=== PATIENT | female | born 1975 | race Caucasian/White ===

== ENCOUNTER → 2021-11-14 02:50 | Outpatient (CLI) | payer OTHER, SELFPAY ==
[2021-11-14 21:06] LABS: SARS-CoV-2 RNA PCR Negative
== END ==
PROVIDERS: PCP Family Medicine; Visit Provider Nurse Practitioner Family
DX: R68.89 Other general symptoms and signs (principal); Z20.822 Contact with and (suspected) exposure to COVID-19
CPT/HCPCS: C9803; U0003; U0005

== ENCOUNTER → 2021-12-14 12:29 | Outpatient (CLI) | payer OTHER, SELFPAY ==
--- NOTE | ~2021-12-14 | MM_ITS ---
EXAMINATION: MM screening [facility] BI w janette HISTORY: Screening mammogram TECHNIQUE: Craniocaudal and mediolateral oblique 3-D tomosynthesis images were obtained and synthetic 2-D images were generated. CAD analysis was submitted and interpreted. COMPARISON: 04/29/2019, 12/04/2017, 08/25/2015 BREAST PARENCHYMAL COMPOSITION: The breasts are heterogeneously dense, which may obscure small masses . FINDINGS: There is no evidence of suspicious mass, calcification, or architectural distortion to sugg est malignancy in either breast. There has been no suspicious interval change. IMPRESSION: 1. No mammographic evidence of malignancy. 2. Recommend routine screening mammography in one year. BI-RADS Category 1: Negative Reviewed, dictated and finalized at location A. [employer]
== END ==
PROVIDERS: PCP Obstetrics & Gynecology Gynecology; Visit Provider Nurse Practitioner
DX: Z12.31 Encounter for screening mammogram for malignant neoplasm of breast (principal)
CPT/HCPCS: 77063; 77067

== ENCOUNTER → 2023-10-03 11:30 | Outpatient (CLI) | payer BC, SELFPAY ==
--- NOTE | ~2023-10-03 | MM_ITS ---
EXAMINATION: MM screening [facility] w janette HISTORY: Screening mammogram TECHNIQUE: Craniocaudal and mediolateral oblique 3-D tomosynthesis images were obtained and synthetic 2-D images were generated. CAD analysis was submitted and interpreted. COMPARISON: 12/14/2021, 04/29/2019 bilateral screening mammogram examinations BREAST PARENCHYMAL COMPOSITION: There are scattered areas of fibroglandular density. FINDINGS: There is no evidence of suspicious mass, calcification, or architectural distortion to sugg est malignancy in either breast. There has been no suspicious interval change. IMPRESSION: 1. No mammographic evidence of malignancy. 2. Recommend routine screening mammography in one year. BI-RADS Category 1: Negative Reviewed, dictated and finalized at location B. [employer] CONNECTOR
== END ==
PROVIDERS: PCP Nurse Practitioner; Visit Provider Nurse Practitioner
DX: Z12.31 Encounter for screening mammogram for malignant neoplasm of breast (principal)
CPT/HCPCS: 77063; 77067

== ENCOUNTER 2025-06-02 01:35 | Day surgery (SDC) | payer OTHER, SELFPAY ==
[2025-05-18 09:19] VITALS: BMI 35.4
[2025-06-02 12:21] VITALS: BP 133/91; PULSE 86; RESP 16; TEMP 36.2; O2SAT 99
--- NOTE | 2025-06-02 12:26 | P.PNAN_ITS ---
Anes - Initial Pre Proc Eval Procedure: Operation Date: 06/02/25 13:00 Proposed Procedures p Screening Colonoscopy - Savage Coronado MD Date/Time: 06/02/25 12:26 Surgeon: Savage Coronado MD Pre Op Diagnosis: Screening Patient Data Age: 49 Gender: F Height: 1.6 m Weight: 90.1 kg Last Vital Signs Temp 97.2 F L 06/02/25 12:21 Pulse 86 06/02/25 12:21 Resp 16 06/02/25 12:21 BP 133/91 H 06/02/25 12:21 Pulse Ox 99 06/02/25 12:21 O2 Del Method Room Air 06/02/25 12:21 Allergies Allergy/AdvReac Type Severity Reaction Status Date / Time No Known Allergies Allergy Unknown Verified 06/02/25 12:17 Home Medications ?Medication ?Instructions ?Recorded ?Confirmed ?Type aspirin 81 mg tablet,delayed 81 mg PO DAILY 02/08/22 06/02/25 History release estradiol 2 mg tablet 2 mg PO DAILY 02/08/22 06/02/25 History krill 350 mg-omega-3 90 mg-dha 24 1 cap PO DAILY 02/08/22 06/02/25 History mg-epa 50 mx-xzabfan-bquhw capsule (MegaRed [place]-3 Krill Oil) gctocfkbgqcj-Dm-slnf-minerals 18 1 tablet PO DAILY 02/08/22 06/02/25 History mg-0.4 mg tablet cholecalciferol (vitamin D3) 1,250 1,250 mcg PO .every 10 days 12/15/24 06/02/25 History mcg (50,000 unit) capsule rosuvastatin 10 mg tablet See Rx Instructions .Route 01/07/25 06/02/25 Rx .COMPLEX #90 tabs albuterol sulfate 90 mcg/actuation 1 puff inhalation Q4H PRN 02/09/25 05/18/25 Rx aerosol inhaler (ProAir HFA) shortness of breath or wheezing #1 device Patient hx anesthesia problems: none Family hx anesthesia problems: none Results Review: All pre-operative results and documents have been reviewed as part of the pre- operative evaluation. PMFSH Past Medical History Medical History Bronchospasm Contact dermatitis Acute URI Stress incontinence Elevated LFTs Encounter for screening colonoscopy Head injury, closed, without LOC Otitis media Hypertension Pre-diabetes Bilateral lower extremity edema Vitamin D deficiency Wellness examination BMI 36.0-36.9,adult BMI over 35 BMI 34.0-34.9,adult Family History Family History Mother Hypertension Fibromyalgia Bipolar 1 disorder Father Heart disease Acute myocardial infarction Hypertension Sibling Bipolar 1 disorder Social History Social History Smoking status: Never smoker Second hand tobacco smoke exposure: No Alcohol intake: current Drinks per week: 4 Substance use: current Substance use type: marijuana Other substance usage details: uses infrequently Do You Feel Safe in your Home?: Yes Lack of Transportation: No Lack of Food: Never True Current Housing: I Have Housing Concerned About Future Housing: No Difficulty Paying Gas/Electric Bills: No Difficulty Paying for Meds: No Currently Unemployed: No Education: High School Diploma/GED Difficulty w/ Childcare or Family Care: No Living arrangements: with family Occupation/Education: occupation Additional occupation/education comments: sales Gender identity (if verbalized by the patient): Female Spiritual care concerns: No Anes - Eval Final PreProcedure Day of Procedure 06/02/25 12:26 Patient weight: obese Lungs: normal air movement Airway: Mallampati scale class II Neurological: alert and oriented Last oral intake: >/= 8 hours ASA classification: II Emergent: no Anesthetic plan: proceed Anesthesia type and monitoring: general GIVS and standard monitoring Results Review: All pre-operative results and documents have been reviewed as part of the pre- operative evaluation. 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 Informed Consent: The patient's anesthetic plan and its attendant risks and benefits were discussed with the patient/family/POA. Questions were solicited and answers provided to the satisfaction of the patient/family/POA.
[2025-06-02 12:30] LABS: BEDSIDEPREGUCG Negative (Negative)
[2025-06-02] MEDS: LACTATED RINGERS 1,000 ML 150 ML IV CONT (12:35)
--- NOTE | 2025-06-02 13:04 | PM.IMHP ---
H&P: HPI History of Present Illness Date/Time: 06/02/25 13:04 Chief Complaint: Screening colonoscopy Narrative: This is the patient's first colonoscopy. There are no GI symptoms and there is no family history of colorectal cancer. Review of Systems Review of Systems: All systems reviewed & are unremarkable except as noted in HPI and below PMFSH Past Medical History Medical History Bronchospasm Contact dermatitis Acute URI Stress incontinence Elevated LFTs Encounter for screening colonoscopy Head injury, closed, without LOC Otitis media Hypertension Pre-diabetes Bilateral lower extremity edema Vitamin D deficiency Wellness examination BMI 36.0-36.9,adult BMI over 35 BMI 34.0-34.9,adult Family History Family History Mother Hypertension Fibromyalgia Bipolar 1 disorder Father Heart disease Acute myocardial infarction Hypertension Sibling Bipolar 1 disorder Social History Social History Smoking status: Never smoker Second hand tobacco smoke exposure: No Alcohol intake: current Drinks per week: 4 Substance use: current Substance use type: marijuana Other substance usage details: uses infrequently Do You Feel Safe in your Home?: Yes Lack of Transportation: No Lack of Food: Never True Current Housing: I Have Housing Concerned About Future Housing: No Difficulty Paying Gas/Electric Bills: No Difficulty Paying for Meds: No Currently Unemployed: No Education: High School Diploma/GED Difficulty w/ Childcare or Family Care: No Living arrangements: with family Occupation/Education: occupation Additional occupation/education comments: sales Gender identity (if verbalized by the patient): Female Spiritual care concerns: No Meds Home Medications and Allergies Home Medications ?Medication ?Instructions ?Recorded ?Confirmed ?Type aspirin 81 mg tablet,delayed 81 mg PO DAILY 02/08/22 06/02/25 History release estradiol 2 mg tablet 2 mg PO DAILY 02/08/22 06/02/25 History krill 350 mg-omega-3 90 mg-dha 24 1 cap PO DAILY 02/08/22 06/02/25 History mg-epa 50 xt-nihbspn-deoev capsule (MegaRed [place]-3 Krill Oil) mupdkmbuudup-Hy-imqm-minerals 18 1 tablet PO DAILY 02/08/22 06/02/25 History mg-0.4 mg tablet cholecalciferol (vitamin D3) 1,250 1,250 mcg PO .every 10 days 12/15/24 06/02/25 History mcg (50,000 unit) capsule rosuvastatin 10 mg tablet See Rx Instructions .Route 01/07/25 06/02/25 Rx .COMPLEX #90 tabs albuterol sulfate 90 mcg/actuation 1 puff inhalation Q4H PRN 02/09/25 05/18/25 Rx aerosol inhaler (ProAir HFA) shortness of breath or wheezing #1 device Allergies Allergy/AdvReac Type Severity Reaction Status Date / Time No Known Allergies Allergy Unknown Verified 06/02/25 12:17 Vital Signs Vital Signs - 24 hr 06/02/25 12:21 Temperature 97.2 F L Pulse Rate 86 Respiratory Rate 16 Blood Pressure 133/91 H Pulse Oximetry 99 Oxygen Delivery Room Air Exam Const: General: cooperative and healthy appearing Resp: Effort & Inspection: normal respiratory effort and able to speak in complete sentences Auscultation: clear to auscultation bilaterally Cardio: Rate: regular rate Rhythm: regular rhythm GI: Inspection: normal to inspection GI Palp: No No hepatosplenomegaly present Auscultation: normal bowel sounds Rectal Exam: deferred Skin: General skin exam: normal color Psych: Appearance: grossly normal Mental Status: mental status grossly normal Assessment and Plan Assessment and plan (1) Encounter for screening colonoscopy: Code(s): Z12.11 - Encounter for screening for malignant neoplasm of colon Status: Acute Assessment and Plan: The patient is deemed a good candidate for the procedure. Consent signed. Will proceed.
[2025-06-02 13:31] VITALS: BP 110/71; PULSE 87; RESP 24; O2SAT 98
[2025-06-02 13:41] VITALS: BP 121/85; PULSE 78; RESP 17; O2SAT 98
[2025-06-02 13:51] VITALS: BP 110/81; PULSE 85; RESP 20; O2SAT 100
== END 2025-06-02 14:05 | disposition home or self-care (01) ==
PROVIDERS: Anesthesiology; PCP Family Medicine; Referring Provider Nurse Practitioner Adult Health; Visit Provider Internal Medicine Gastroenterology
PROC: 0DJD8ZZ Inspection of Lower Intestinal Tract, Via Natural or Artificial Opening Endoscopic (ICD-10-PCS; CPT 45378; principal; 2025-06-02 13:00)
DX: Z12.11 Encounter for screening for malignant neoplasm of colon (principal); E66.9 Obesity, unspecified; Z68.35 Body mass index [BMI] 35.0-35.9, adult
CPT/HCPCS: 45378; J2003; J2704; J7120